=== PATIENT | female | born 2000 | race Caucasian/White ===

== ENCOUNTER 2022-02-27 11:51 | Inpatient (IN) ==
--- NOTE | 2022-02-27 13:30 | History & Physical Report ---
Date of Service February 27, 2022 Assessment & Plan (1) PROM (premature rupture of membranes): (2) 38 weeks gestation of : Plan: admit, iv, labs. start pitocin induction. fhts categ 1. History of Present Illness Chief Complaint: leaking Primary Care Provider: JOSE PCP 21yo at 38 wks who presents to L&D noting leaking clear fluid since 1040 am today. She notes no significant ctx. Some pink dc. +FM PNC uncomplicated PNL rh pos, ri, gbs neg OBH: g1 GYNH: no stds Allergies Allergy/AdvReac Type Severity Reaction Status Date / Time Penicillins Allergy hives Verified 02/25/22 14:24 Home Medications Medication Instructions Recorded Confirmed Type prenat.vits,aj,agn-ykcb-eodir 1 tab PO DAILY 09/02/21 02/25/22 History Saccharomyces boulardii [Digest PO 11/23/21 02/25/22 History Probiotic (S.boulardii)] loratadine 10 mg tablet (Claritin) 10 mg PO DAILY PRN 11/23/21 02/25/22 History Patient History Medical History (Updated 02/27/22 @ 13:35 by Katherin Garcia MD, FACOG) Eczema GERD (gastroesophageal reflux disease) No known health problems Surgical History (Updated 09/02/21 @ 11:02 by Courtney Navarro) History of thumb surgery Family History Other Diabetes Stroke Social History (Updated 02/27/22 @ 12:14 by Lucía Salvador RN) Smoking Status: Never smoker Hx Alcohol Use: No Hx Substance Use: No Preferred Language: Kittitian Communication Ability: Effective Visual Impairment: No Limitations Auto Damage Appraiser Required: No Beliefs That Will Affect Care: None marital status: marital status details: Fantasma (28) [phone] Current Living Situation: Spouse Current Living Situation Comment: lives with spouse current occupational status: employed current occupation: [employer]. Other Information That Helps Us Care for You: No Feels Safe at Home: Yes Safety Concerns: Feels Safe At This Time Assistive Devices: None Review of Systems as per Subjective / HPI Physical Exam Constitutional: WD/WN, vitals as above Respiratory: normal respiratory effort, lungs clear to auscultation Cardiovascular: Rate/Rhythm: regular rate and regular rhythm Gastrointestinal (Abdomen): soft gravid nt efw 7-8# Musculoskeletal: no edema nontender calves Neurologic: grossly normal Psychiatric: A+Ox3, euthymic affect Genitourinary: Manual OB Exam: + cervical dilation 3 cm, + cervical effacement 90%, + station -2 and + amniotic fluid (SSE +pooling, ) clear, nitrazine positive and ferning present OB Exam Monitor Tracing: + external FHT monitor used, + external uterine monitor used (irreg), + category I and + normal FHT variability Results & Data ([facility]) Vital Signs (Past 12 Hours) Vital Signs Temp Pulse Resp BP 02/27/22 12:14 97.9 F 18 02/27/22 12:10 77 129/67 Coding Level of Care Code None Diagnoses PROM (premature rupture of membranes) O42.90 38 weeks gestation of Z3A.38
[2022-02-27] MEDS ORDERED: OXYTOCIN 30 UNITS/500 ML BAG IV PRN ×3 (13:36→23:50)
[2022-02-27 14:08] LABS: Hematocrit (blood only) 36.4 % (37-47); Hemoglobin 12.4 g/dL (12.0-16.0); Mean Corpuscular Hemoglobin 27.9 pg (25-34); Mean Corpuscular Hgb Conc 34.1 g/dL (32-36); Mean Platelet Volume 10.9 fL (7.4-10.4); Platelet Count 295 K/uL (130-400); RDW Coefficient of Variation 14.2 % (11.5-14.5); RDW Standard Deviation 42.7 fL (36.4-46.3); Red Blood Count 4.44 M/uL (4.2-5.4); White Blood Count 10.49 K/uL (4.8-10.8)
[2022-02-27] MEDS ORDERED: BUPIVACAINE 0.25% 30 ML VIAL ONE (14:18)
[2022-02-27] MEDS ORDERED: fentaNYL citrate 100 MCG/2 ML VIAL ONE ×2 (14:18→19:40)
[2022-02-27] MEDS ORDERED: ePHEDrine sulfate 50 MG/ML AMP ONE (14:18)
[2022-02-27] MEDS ORDERED: SODIUM CHLORIDE 0.9% INJ 10 ML VIAL ONE (14:18)
[2022-02-27] MEDS ORDERED: fentaNYL 2MCG/ML ROPIVACAINE 1.25MG/ML 100 ML BAG EPI ONE (14:18)
[2022-02-27] MEDS: LACTATED RINGER'S 1,000 ML IV PRN ×3 (14:20→21:40)
--- NOTE | 2022-02-27 15:00 | Anesthesiology Consultation ---
Date of Service February 27, 2022 Assessment & Plan (1) Encounter for pre-operative examination: Chart Review Chart Review: Acceptable Risk for Labor Epidural Consults Requested none ASA ASA2 Proposed Anesthesia Anesthesia Type: Labor Epidural Risk / Benefits Reviewed With: PT / POA / Parent / Guardian, Accepts Plan and Informed Consent Obtained History Height/Weight Height: 5 ft 4 in Weight: 108.409 kg Allergies Allergy/AdvReac Type Severity Reaction Status Date / Time Penicillins Allergy hives Verified 02/25/22 14:24 Medications Home Medications Medication Instructions Recorded Confirmed Last Taken prenat.vits,aj,gvn-mnfu-hmzag 1 tab PO DAILY 09/02/21 02/25/22 Unknown Saccharomyces boulardii [Digest PO 11/23/21 02/25/22 Unknown Probiotic (S.boulardii)] loratadine 10 mg tablet (Claritin) 10 mg PO DAILY PRN 11/23/21 02/25/22 Unknown Active Medications Generic Name Dose Route Start Last Admin Trade Name Freq PRN Reason Stop Dose Admin Lactated Ringer's 1,000 mls @ 125 mls/hr 02/27/22 13:36 02/27/22 14:20 Lr IV 03/01/22 13:35 999 mls/hr .Q8H PRN Administration L&D Protocol Protocol Past Medical History Medical History Eczema GERD (gastroesophageal reflux disease) No known health problems Exercise / Class Metabolic Activity II 4-5 Yardwork/Stairs/Walk up hill Past Family History Family History Other Diabetes Stroke Past Surgical History Surgical History History of thumb surgery Past Anesthesia History No Hx of Anesthesia Complications and No Family Hx of Anesthesia Complications History of PONV No Hx of PONV and No Hx of Motion Sickness Social History Smoking Status: Never smoker Hx Alcohol Use: No Hx Substance Use: No Physical Exam Vital Signs Last Vital Signs Temp 97.9 F 02/27/22 12:14 Pulse 72 02/27/22 14:53 Resp 18 02/27/22 12:14 BP 129/67 02/27/22 12:10 Pulse Ox 98 02/27/22 14:53 ENMT Mouth: no dentition abnormality Thyromental Distance: > or= 3.5 Finger Breadths Mallampati Class: II Neck normal visual inspection Respiratory normal respiratory effort Auscultation: lungs clear to auscultation bilaterally Cardiovascular Rate/Rhythm: regular rate and regular rhythm Testing Laboratory Results 02/27/22 13:51 Blood Type A Positive 02/27/22 12:56 Antibody Screen NEGATIVE 02/27/22 12:56
[2022-02-27] MEDS ORDERED: ePHEDrine sulfate 50 MG/ML AMP IV PRN (15:22)
[2022-02-27] MEDS ORDERED: fentaNYL 2MCG/ML ROPIVACAINE 1.25MG/ML 100 ML BAG EPI PRN ×2 (15:22→19:56)
[2022-02-27] MEDS ORDERED: NALOXONE HCL 0.4 MG/1 ML VIAL/CARP IV PRN (15:22)
[2022-02-27] MEDS ORDERED: diphenhydrAMINE 50 MG/ML VIAL IV PRN (15:22)
[2022-02-27] MEDS ORDERED: ONDANSETRON INJ 2 MG/ML 2 ML VIAL IV PRN (15:22)
[2022-02-27] MEDS ORDERED: NALOXONE HCL 1 MG in SODIUM CHLORIDE 0.9% 1000ML 1,000 ML IV PRN (15:22)
[2022-02-27] MEDS ORDERED: NALBUPHINE HCL INJ 10 MG/ML AMP IV PRN (15:22)
--- NOTE | 2022-02-27 16:46 | Labor Progress Brief Note ---
Date of Service February 27, 2022 Subjective now comfortable with epidural Assessment & Plan (1) 38 weeks gestation of : (2) PROM (premature rupture of membranes): Plan: good cx change. c/w pit. fhts categ 1. Admission and Anticipated Discharge Date Admission Date: February 27, 2022 Physical Exam Constitutional: WD/WN, vitals as above Genitourinary: Manual OB Exam: + cervical dilation 5 cm, + cervical effacement 100% and + station -1 OB Exam Monitor Tracing: + external FHT monitor used, + external uterine monitor used (q2 pit at 1), + category I and + normal FHT variability Results & Data ([facility]) Vital Signs (Past 12 Hours) Vital Signs Temp Pulse Resp BP Pulse Ox 02/27/22 16:43 76 100 02/27/22 16:38 69 100 02/27/22 16:34 68 129/59 L 02/27/22 16:33 68 100 02/27/22 16:28 68 100 02/27/22 16:24 69 137/82 02/27/22 16:23 72 100 02/27/22 16:18 77 127/76 100 02/27/22 16:13 69 99 02/27/22 16:12 68 20 140/74 02/27/22 16:08 72 137/77 99 02/27/22 16:03 86 100 02/27/22 16:02 70 20 138/69 02/27/22 15:58 69 99 02/27/22 15:57 69 138/72 02/27/22 15:53 73 99 02/27/22 15:52 71 136/72 02/27/22 15:48 71 99 02/27/22 15:47 71 140/72 02/27/22 15:45 74 20 142/73 H 02/27/22 15:43 71 140/71 97 02/27/22 15:41 82 146/75 H 02/27/22 15:39 71 144/74 H 02/27/22 15:38 72 98 02/27/22 15:37 86 147/77 H 02/27/22 15:35 83 20 143/71 H 02/27/22 15:33 71 141/72 H 97 02/27/22 15:31 73 20 139/72 02/27/22 15:28 78 143/74 H 96 02/27/22 15:27 73 20 158/83 H 02/27/22 15:25 81 157/87 H 02/27/22 15:23 73 20 160/93 H 97 02/27/22 15:21 89 20 152/84 H 02/27/22 15:19 65 20 146/79 H 02/27/22 15:18 64 98 02/27/22 15:17 71 20 154/83 H 02/27/22 15:15 91 H 20 158/88 H 02/27/22 15:13 74 99 02/27/22 15:08 74 100 02/27/22 15:05 98.2 F 73 20 156/84 H 02/27/22 15:03 83 99 02/27/22 14:58 85 100 02/27/22 14:53 72 98 02/27/22 14:48 79 100 02/27/22 14:43 83 100 02/27/22 14:38 81 99 02/27/22 14:33 79 99 02/27/22 14:28 77 100 02/27/22 14:23 73 99 02/27/22 14:18 81 100 02/27/22 12:14 97.9 F 18 02/27/22 12:10 77 129/67 Coding Level of Care Code None Diagnoses 38 weeks gestation of Z3A.38 PROM (premature rupture of membranes) O42.90
[2022-02-27] MEDS ORDERED: CALCIUM CARBONATE 500 MG CHEWABLE TAB PO PRN (17:41)
[2022-02-27] MEDS ORDERED: NURSING L&D Epidural Breakthrough Pain Update ONE (18:37)
[2022-02-27] MEDS ORDERED: LIDOCAINE 2% 20 MG/ML 5 ML SYR IV ONE (19:40)
[2022-02-27] MEDS ORDERED: LIDOCAINE 2%/EPINEPHRINE 1:200,000 20 ML SDV ONE (19:40)
--- NOTE | 2022-02-27 20:30 | Communication Note ---
Date of Service: February 27, 2022 pt complaining of breakthrough labor pain. pt states the pain is sharp in her vaginal area. pt is lying flat in the bed. i placed the patient at 30 degrees and bolused 5mL of 2% lido with epi plus 100 mcg fentanyl. pt reported improvement in symptoms.
--- NOTE | 2022-02-27 23:47 | Delivery Summary ---
Vaginal Delivery Summary Date of Service February 27, 2022 Vaginal Delivery Summary The patient dilated to complete and pushed to deliver a viable male infant Apgars 8 and 9 via over intact perineum. Mouth and nose bulb suctioned at perineum. Shoulders and body delivered with ease. was vigorous and crying at . Cord clamped at 30 seconds of life and infant to maternal abdomen where the cord was then doubly clamped and cut. Placenta delivered spontaneously and intact, three-vessel cord. Hemostasis not achieved with dilute pitocin and uterine massage and drainage of the bladder for approximately 100 cc under sterile conditions. Uterus swept x 2 with no evidence of retained products, only clots and no uterine tone. Cerix and sulci intact. 800mcg rectal cytotec followed by IM hemabate given after bp noted. Additionaly evaluation of cavity without sufficient tone and therefore Bakri balloon placed with 510cc NS. Machado placed under sterile conditions. FF at u toward right. Bleeding lessened. Cervix and sulci intact. EBL 800 cc. Mother and baby stable re covery. [facility] Vaginal Delivery Charge Delivery Type Details:
[2022-02-27] MEDS ORDERED: BUTORPHANOL TARTRATE 1 MG/ML VIAL IV STA (23:48)
[2022-02-27] MEDS ORDERED: BUTORPHANOL TARTRATE 1 MG/ML VIAL ONE (23:49)
[2022-02-27] MEDS ORDERED: miSOPROStoL 200 MCG TAB PR ONE (23:50)
[2022-02-27] MEDS ORDERED: DIPHTHERIA/TETANUS/PERTUSSIS 0.5 ML SYR/VIAL IM ONE (23:50)
[2022-02-27] MEDS ORDERED: CARBOPROST TROMETHAMINE 250 MCG/ML AMPUL ONE (23:50)
[2022-02-27] MEDS ORDERED: CARBOPROST TROMETHAMINE 250 MCG/ML AMPUL IM ONE (23:50)
[2022-02-27] MEDS ORDERED: BENZOCAINE 20% AER SPR 82.5 GM CAN EXT PRN (23:50)
[2022-02-27] MEDS ORDERED: HYDROCORTISONE ACETATE 25 MG SUPP PR PRN (23:50)
[2022-02-27] MEDS ORDERED: ACETAMINOPHEN 325 MG TAB PO PRN (23:50)
[2022-02-27] MEDS ORDERED: miSOPROStoL 200 MCG TAB ONE (23:50)
[2022-02-27] MEDS ORDERED: bisacodyL 10 MG SUPP PR PRN (23:50)
[2022-02-28] MEDS ORDERED: OXYTOCIN 20 UNITS in LACTATED RINGER'S 1,000 ML IV SCH (00:01)
[2022-02-28] MEDS ORDERED: LORATADINE 10 MG TAB PO PRN (00:01)
[2022-02-28] MEDS: ceFAZolin 2000MG 2,000 MG/15 ML SYR IV SCH ×3 (00:16→18:54)
[2022-02-28] MEDS: IBUPROFEN 600 MG TAB PO PRN ×3 (01:05→11:39)
[2022-02-28] MEDS: oxyCODONE/ACETAMINOPHEN 5mg/325mg TAB PO PRN ×2 (01:05→05:25)
--- NOTE | 2022-02-28 01:13 | Anesthesiology Progress Note ---
Date of Service February 28, 2022 Anesthesia Post Procedure Vital Signs Vital Signs: Temp Pulse Resp BP Pulse Ox 02/28/22 01:08 76 98 02/28/22 01:03 100 H 98 02/28/22 00:59 80 151/80 H 02/28/22 00:58 82 98 02/28/22 00:53 102 H 98 02/28/22 00:48 83 97 02/28/22 00:44 85 154/76 H 02/28/22 00:43 99 H 98 02/28/22 00:38 94 H 96 02/28/22 00:33 92 H 97 02/28/22 00:29 95 H 158/72 H 02/28/22 00:28 97 H 97 02/28/22 00:23 98 H 97 02/28/22 00:18 97 H 95 02/28/22 00:14 96 H 158/70 H 02/28/22 00:13 104 H 94 02/28/22 00:08 99 H 95 02/28/22 00:05 98 H 94 02/28/22 00:03 103 H 94 02/28/22 00:01 103 H 161/70 H 02/28/22 00:00 100 H 94 02/27/22 23:59 105 H 170/70 H 02/27/22 23:58 108 H 96 02/27/22 23:53 149 H 97 02/27/22 23:48 101 H 98 02/27/22 23:43 106 H 165/88 H 100 02/27/22 23:40 107 H 159/81 H 02/27/22 23:38 103 H 99 02/27/22 23:37 109 H 158/84 H 02/27/22 23:34 110 H 155/80 H 02/27/22 23:33 115 H 96 02/27/22 23:29 118 H 151/97 H 02/27/22 23:28 123 H 96 02/27/22 23:23 127 H 97 02/27/22 23:21 152 H 94 02/27/22 23:18 128 H 94 02/27/22 23:13 124 H 96 02/27/22 23:08 120 H 96 02/27/22 23:03 124 H 97 02/27/22 22:58 134 H 97 02/27/22 22:53 137 H 97 02/27/22 22:48 133 H 98 02/27/22 22:43 146 H 98 02/27/22 22:38 124 H 95 02/27/22 22:33 116 H 97 02/27/22 22:28 140 H 98 02/27/22 22:27 120 H 132/66 02/27/22 22:26 131 H 91 02/27/22 22:23 102 H 99 02/27/22 22:18 110 H 98 02/27/22 22:16 101 H 91 02/27/22 22:13 119 H 98 02/27/22 22:10 99 H 92 02/27/22 22:08 82 100 02/27/22 22:03 78 98 06 21:58 74 100 02/27/22 21:53 83 99 02/27/22 21:51 94 H 93 02/27/22 21:48 72 99 02/27/22 21:43 91 H 100 02/27/22 21:38 79 99 02/27/22 21:33 79 100 02/27/22 21:28 72 100 02/27/22 21:26 80 128/69 91 02/27/22 21:23 73 100 02/27/22 21:18 73 100 02/27/22 21:13 95 H 100 02/27/22 21:11 81 135/61 02/27/22 21:08 81 99 02/27/22 21:07 36.5 C 18 02/27/22 21:03 100 H 99 02/27/22 20:58 89 98 02/27/22 20:53 96 H 98 02/27/22 20:48 97 H 98 02/27/22 20:43 105 H 99 02/27/22 20:40 90 124/81 02/27/22 20:38 88 98 05 20:33 89 98 02/27/22 20:28 86 98 0605 20:25 71 130/62 06 20:23 74 99 02/27/22 20:18 72 99 02/27/22 20:13 85 98 05 20:08 106 H 140/68 97 02/27/22 20:03 94 H 143/66 H 96 02/27/22 19:58 91 H 142/73 H 97 02/27/22 19:53 74 96 02/27/22 19:52 67 142/72 H 02/27/22 19:48 75 145/63 H 96 02/27/22 19:46 67 147/70 H 02/27/22 19:43 74 96 02/27/22 19:38 78 97 02/27/22 19:33 82 98 02/27/22 19:31 74 148/76 H 02/27/22 19:28 76 98 02/27/22 19:23 80 97 02/27/22 19:18 77 144/82 H 98 02/27/22 19:13 77 97 02/27/22 19:08 36.7 C 73 20 97 02/27/22 19:03 87 98 02/27/22 19:01 77 133/63 02/27/22 18:58 82 99 02/27/22 18:53 69 96 02/27/22 18:48 73 98 02/27/22 18:47 71 132/61 02/27/22 18:43 75 97 02/27/22 18:38 78 98 02/27/22 18:33 82 98 02/27/22 18:31 81 20 134/59 L 02/27/22 18:28 68 97 02/27/22 18:23 77 98 02/27/22 18:18 77 99 02/27/22 18:17 67 133/65 02/27/22 18:13 84 98 02/27/22 18:08 77 99 02/27/22 18:03 75 100 02/27/22 18:01 70 142/74 H 02/27/22 18:00 20 02/27/22 17:58 74 99 05 17:53 64 100 05 17:48 71 100 05 17:45 66 18 134/65 05 17:43 64 100 05 17:38 57 L 100 02/27/22 17:33 70 99 05 17:31 68 139/67 05 17:28 73 100 02/27/22 17:23 90 100 05 17:18 73 100 05 17:15 74 145/69 H 02/27/22 17:13 75 100 02/27/22 17:08 83 100 02/27/22 17:03 74 100 06/05 17:01 74 138/71 0605 16:58 69 100 0605 16:53 70 100 060522 16:48 69 100 0622 16:47 36.8 C 18 02/27/22 16:46 61 18 135/62 0605 16:43 76 100 02/27/22 16:38 69 100 0605 16:34 68 18 129/59 L 02/27/22 16:33 68 100 060522 16:28 68 100 06 16:24 69 137/82 0605 16:23 72 100 06 16:18 77 127/76 100 0605 16:13 69 99 0605 16:12 68 20 140/74 02/27/22 16:08 72 137/77 99 0605 16:03 86 100 02/27/22 16:02 70 20 138/69 0605 15:58 69 99 0605 15:57 69 138/72 0605 15:53 73 99 0605 15:52 71 136/72 06/05 15:48 71 99 060522 15:47 71 140/72 0605 15:45 74 20 142/73 H 05 15:43 71 140/71 97 05 15:41 82 146/75 H 05 15:39 71 144/74 H 0605 15:38 72 98 0605 15:37 86 147/77 H 05 15:35 83 20 143/71 H 0605/22 15:33 71 141/72 H 97 05/22 15:31 73 20 139/72 06/05/22 15:28 78 143/74 H 96 05 15:27 73 20 158/83 H 0605/22 15:25 81 157/87 H 02/27/22 15:23 73 20 160/93 H 97 05/22 15:21 89 20 152/84 H 0605/22 15:19 65 20 146/79 H 0605 15:18 64 98 06/05/22 15:17 71 20 154/83 H 02/27/22 15:15 91 H 20 158/88 H 02/27/22 15:13 74 99 02/27/22 15:08 74 100 02/27/22 15:05 36.8 C 73 20 156/84 H 02/27/22 15:03 83 99 02/27/22 14:58 85 100 02/27/22 14:53 72 98 02/27/22 14:48 79 100 02/27/22 14:43 83 100 02/27/22 14:38 81 99 02/27/22 14:33 79 99 02/27/22 14:28 77 100 02/27/22 14:23 73 99 02/27/22 14:18 81 100 02/27/22 12:14 36.6 C 18 02/27/22 12:10 77 129/67 Pain Intensity Bilateral Abdomen: Pain Intensity: 10 Transfer of Care Handoff Completed per policy Notes Mental Status: alert / awake / arousable and participated in evaluation Patient Amnestic to Procedure: Yes Nausea / Vomiting: adequately controlled Pain: adequately controlled Airway Patency, RR, SpO2: stable & adequate BP & HR: stable & adequate Hydration State: stable & adequate Anesthetic Complications: no major complications apparent and Pt Satisfied with anesthetic care
[2022-02-28 06:31] LABS: Hematocrit (blood only) 30.8 % (37-47); Hemoglobin 10.6 g/dL (12.0-16.0)
--- NOTE | 2022-02-28 07:35 | Obstetrical Progress Note ---
Date of Service February 28, 2022 Assessment & Plan (1) Encounter for care and examination after delivery: Plan: 21yo PPD 1 s/p at 38 weeks complicated with PPH. Bakri place on pit. +jacinto. -Continue routine care -Vitals reviewed- afebrile, mildly elevated BP and HR s/p PPH but improving. -GBS neg -Generally patient progressing well. Will plan for Bakri/jacinto removal later today. -Advance diet as tolerated -Encourage ambulation -Pain control with ibuprofen, acetaminophen PRN -Encourage -Hgb 12.4 --> 10.6, continue to monitor -f/u in 6 weeks with OB after discharge (2) hemorrhage: Admission and Anticipated Discharge Date Admission Date: February 27, 2022 Supervising Physician Co-Signing Physician Notes Resident Physician Supervision Note: I was present with Dr. Hartmann during the history and exam. I discussed the case with the resident and agree with the findings and plan as documented in the note. Any exceptions or clarifications are listed here: pt doing well this am. less pain. feels "pretty good." bleeding overnight noted, good urine output, hgb noted this am. 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 , jacinto in place. ff 1 down nt, nt calves. routine care otherwise, has scds in place since in bed. Documented By: Katherin Garcia MD, FACOG Subjective Ambulation: no Voiding: no, jacinto in place Passing Gas: yes BM: no Diet Tolerance: has only had fluids Lochia: small Feeding Type: Current Pain Level(1-10): 2 Review of Systems Review of Systems: Denies fevers/chills. Denies dyspnea. +mild cough Denies chest pain. +heartburn Denies dysuria. Denies headache. Denies back pain. Physical Exam Physical Exam: General: Alert, oriented, no acute distress Cardiac: Regular rate and rhythm, normal S1, S2. No murmurs appreciated. Respiratory: Clear to auscultation b/l with good air flow entry, symmetric chest rise and fall. No wheezes or crackles. No increased work of breathing or accesso ry muscle use Abdomen: Soft, mild diffuse tenderness, nondistended. Fundus firm and palpable at 1 cm below umbilicus. No guarding or rebound. Skin: No rashes or lesions Extremities: Warm, dry, well-perfused with capillary refill <2s b/l. No lower extremity edema, erythema or swelling. Negative Ric's sign b/l. : jacinto and bakri in place both with good output Results & Data ([facility]) Vital Signs (Past 12 Hours) Vital Signs Temp Pulse Resp BP Pulse Ox 02/28/22 07:17 93 H 141/65 H 02/28/22 06:47 100 H 139/74 02/28/22 06:27 93 H 18 148/70 H 02/28/22 05:46 93 H 111/77 02/28/22 05:17 85 136/65 02/28/22 05:16 16 02/28/22 04:47 88 144/66 H 02/28/22 04:17 100 H 110/81 02/28/22 03:16 36.5 C 93 H 18 140/70 02/28/22 02:47 90 148/77 H 02/28/22 02:16 71 16 129/70 02/28/22 01:46 36.5 C 79 157/74 H 02/28/22 01:43 18 02/28/22 01:38 76 99 02/28/22 01:33 83 100 02/28/22 01:29 82 155/79 H 02/28/22 01:28 82 100 02/28/22 01:23 90 98 02/28/22 01:18 77 98 02/28/22 01:14 90 157/83 H 02/28/22 01:13 80 18 100 02/28/22 01:08 76 98 02/28/22 01:03 100 H 98 02/28/22 00:59 80 151/80 H 02/28/22 00:58 82 98 02/28/22 00:53 102 H 98 02/28/22 00:48 83 97 02/28/22 00:44 85 18 154/76 H 02/28/22 00:43 99 H 98 02/28/22 00:38 94 H 96 02/28/22 00:33 92 H 97 02/28/22 00:29 95 H 20 158/72 H 02/28/22 00:28 97 H 97 02/28/22 00:23 98 H 97 02/28/22 00:18 97 H 95 02/28/22 00:14 96 H 158/70 H 02/28/22 00:13 104 H 20 94 02/28/22 00:08 99 H 95 02/28/22 00:05 98 H 94 02/28/22 00:03 103 H 94 02/28/22 00:01 103 H 161/70 H 02/28/22 00:00 100 H 94 02/27/22 23:59 105 H 170/70 H 02/27/22 23:58 108 H 18 96 02/27/22 23:53 149 H 97 02/27/22 23:48 101 H 98 02/27/22 23:43 106 H 18 165/88 H 100 02/27/22 23:40 107 H 159/81 H 02/27/22 23:38 103 H 99 02/27/22 23:37 109 H 158/84 H 02/27/22 23:34 110 H 155/80 H 02/27/22 23:33 115 H 96 02/27/22 23:29 118 H 151/97 H 02/27/22 23:28 123 H 96 02/27/22 23:23 127 H 97 02/27/22 23:21 152 H 94 02/27/22 23:18 128 H 94 02/27/22 23:13 124 H 96 02/27/22 23:08 120 H 96 02/27/22 23:03 124 H 97 02/27/22 22:58 134 H 97 02/27/22 22:53 137 H 97 02/27/22 22:48 133 H 98 02/27/22 22:43 146 H 98 02/27/22 22:38 124 H 95 02/27/22 22:33 116 H 97 02/27/22 22:28 140 H 98 02/27/22 22:27 120 H 132/66 02/27/22 22:26 131 H 91 02/27/22 22:23 102 H 99 02/27/22 22:18 110 H 98 02/27/22 22:16 101 H 91 02/27/22 22:13 119 H 98 02/27/22 22:10 99 H 92 02/27/22 22:08 82 100 02/27/22 22:03 78 98 02/27/22 21:58 74 100 02/27/22 21:53 83 99 02/27/22 21:51 94 H 93 02/27/22 21:48 72 99 02/27/22 21:43 91 H 100 02/27/22 21:38 79 99 02/27/22 21:33 79 100 02/27/22 21:28 72 100 02/27/22 21:26 80 128/69 91 02/27/22 21:23 73 100 02/27/22 21:18 73 100 02/27/22 21:13 95 H 100 02/27/22 21:11 81 135/61 02/27/22 21:08 81 99 02/27/22 21:07 36.5 C 18 02/27/22 21:03 100 H 99 02/27/22 20:58 89 98 02/27/22 20:53 96 H 98 02/27/22 20:48 97 H 98 02/27/22 20:43 105 H 99 02/27/22 20:40 90 124/81 02/27/22 20:38 88 98 02/27/22 20:33 89 98 02/27/22 20:28 86 98 02/27/22 20:25 71 130/62 02/27/22 20:23 74 99 02/27/22 20:18 72 99 02/27/22 20:13 85 98 02/27/22 20:08 106 H 140/68 97 02/27/22 20:03 94 H 143/66 H 96 02/27/22 19:58 91 H 142/73 H 97 02/27/22 19:53 74 96 02/27/22 19:52 67 142/72 H 02/27/22 19:48 75 145/63 H 96 02/27/22 19:46 67 147/70 H 02/27/22 19:43 74 96 02/27/22 19:38 78 97 02/27/22 19:33 82 98 02/27/22 19:31 74 148/76 H Resident Activity Tracking Resident Involvement: Resident Care Provided Care Provided: OB Delivery
[2022-02-28] MEDS: PRENATAL VITAMIN 1 TAB PO SCH (08:01)
[2022-02-28] MEDS: DOCUSATE SODIUM 100 MG CAP PO SCH ×2 (08:01→20:33)
[2022-02-28] MEDS: FAMOTIDINE 20 MG TAB PO SCH (08:02)
[2022-02-28] MEDS ORDERED: CALCIUM CARBONATE 500 MG CHEWABLE TAB PO PRN (17:39)
--- NOTE | 2022-03-01 08:30 | Obstetrical Progress Note ---
Date of Service March 01, 2022 Assessment & Plan (1) Encounter for care and examination after delivery: Plan: 21yo PPD 2 s/p at 38 weeks complicated with PPH. Jacinto/Bakri removed yesterday (02/28). -Continue routine care -Vitals reviewed- afebrile, HDS -GBS neg -Regular diet, voiding -Encourage ambulation -Pain control with ibuprofen, acetaminophen PRN -Encourage -Hgb 12.4 --> 10.6 --> pending (03/01), continue to monitor -ok for discharge if H&H stable -f/u in 6 weeks with OB after discharge (2) hemorrhage: Admission and Anticipated Discharge Date Admission Date: February 27, 2022 Supervising Physician Co-Signing Physician Notes Patient seen and evaluated with resident and agree with the above findings and plan. Doing well. Stable for discharge pending H/H Subjective Ambulation: yes Voiding: yes, jacinto removed (02/28) Passing Gas: yes BM: no Diet Tolerance: regular, denies N/V Lochia: small Feeding Type: Current Pain Level(1-10): 0 Review of Systems Review of Systems: Denies fevers/chills. Denies dyspnea or cough. Denies chest pain. +heartburn, improving Denies dysuria. Denies headache. Denies back pain. Physical Exam Physical Exam: General: Alert, oriented, no acute distress Cardiac: Regular rate and rhythm, normal S1, S2. No murmurs appreciated. Respiratory: Clear to auscultation b/l with good air flow entry, symmetric chest rise and fall. No wheezes or crackles. No increased work of breathing or accessory muscle use Abdomen: Soft, mild diffuse tenderness (improving), nondistended. Fundus firm and palpable at 2 cm below umbilicus. No guarding or rebound. Skin: No rashes or lesions Extremities: Warm, dry, well-perfused with capillary refill <2s b/l. No lower extremity edema, erythema or swelling. Negative Ric's sign b/l. Results & Data ([facility]) Vital Signs (Past 12 Hours) Vital Signs Temp Pulse Pulse Resp BP Pulse Ox 03/01/22 04:43 36.8 C 93 H 16 115/63 98 02/28/22 23:10 37.2 C 94 H 18 139/79 98 06/06/22 22:57 83 98 02/28/22 22:52 79 98 02/28/22 22:47 88 98 02/28/22 22:42 88 98 02/28/22 22:37 84 99 02/28/22 22:32 86 99 02/28/22 22:30 89 88 L 02/28/22 22:27 95 H 98 02/28/22 22:22 83 98 02/28/22 22:19 94 H 88 L 02/28/22 22:17 93 H 98 02/28/22 22:12 84 98 02/28/22 22:07 89 99 02/28/22 22:02 87 98 02/28/22 21:57 89 98 02/28/22 21:52 94 H 99 02/28/22 21:47 99 H 100 02/28/22 21:42 97 H 99 02/28/22 21:37 99 H 99 02/28/22 21:32 96 H 99 02/28/22 21:27 87 98 02/28/22 21:22 102 H 98 02/28/22 21:17 97 H 99 02/28/22 21:12 95 H 98 02/28/22 21:07 102 H 98 02/28/22 21:02 99 H 98 02/28/22 20:57 102 H 98 02/28/22 20:52 101 H 99 02/28/22 20:47 97 H 98 02/28/22 20:42 100 H 98 02/28/22 20:37 103 H 98 02/28/22 20:32 112 H 97 02/28/22 20:27 111 H 98 Resident Activity Tracking Resident Involvement: Resident Care Provided Care Provided: OB Delivery
[2022-03-01 09:05] LABS: Hematocrit (blood only) 29.1 % (37-47); Hemoglobin 9.8 g/dL (12.0-16.0)
[2022-03-01] MEDS: DOCUSATE SODIUM 100 MG CAP PO SCH ×2 (09:29→21:21)
[2022-03-01] MEDS: PRENATAL VITAMIN 1 TAB PO SCH (09:29)
[2022-03-01] MEDS: FAMOTIDINE 20 MG TAB PO SCH (19:37)
--- NOTE | 2022-03-02 06:39 | Obstetrical Progress Note ---
Date of Service March 02, 2022 Assessment & Plan (1) Encounter for care and examination after delivery: Plan: 21yo PPD 3 s/p at 38 weeks complicated with PPH. Jacinto/Bakri removed (02/28). -Continue routine care -Vitals reviewed- afebrile, HDS -GBS neg -Regular diet, voiding -Encourage ambulation -Pain control with ibuprofen, acetaminophen PRN -Encourage -Hgb 9.8 (6/7) -f/u in 6 weeks with OB after discharge (2) hemorrhage: Admission and Anticipated Discharge Date Admission Date: February 27, 2022 Supervising Physician Co-Signing Physician Notes Resident Physician Supervision Note: I interviewed and examined the patient. Discussed with Dr. Hartmann and agree with findings and plan as documented in the note. Any exceptions or clarifications are listed here: PP3 s/p , stayed last evening as was not 24 hrs from bakri and was still level 2. Continues to do well s/p bakri, bleeding appropriate. VSS, exam benign and wnl. H/H stable yesterday. Stable or d/c home today Documented By: Tessa Gonzalez MD Subjective Ambulation: yes Voiding: yes, jacinto removed (02/28) Passing Gas: yes BM: no Diet Tolerance: regular, denies N/V Lochia: small Feeding Type: Current Pain Level(1-10): 0 Review of Systems Review of Systems: Denies fevers/chills. Denies dyspnea or cough. Denies chest pain. +mild heartburn after eating (improving) Denies dysuria. Denies headache. Denies back pain. Physical Exam Physical Exam: General: Alert, oriented, no acute distress Cardiac: Regular rate and rhythm, normal S1, S2. No murmurs appreciated. Respiratory: Clear to auscultation b/l with good air flow entry, symmetric chest rise and fall. No wheezes or crackles. No increased work of breathing or accessory muscle use Abdomen: Soft, nontender, nondistended. Fundus firm and palpable at 2 cm below umbilicus. No guarding or rebound. Skin: No rashes or lesions Extremities: Warm, dry, well-perfused with capillary refill <2s b/l. No lower extremity edema, erythema or swelling. Negative Ric's sign b/l. Results & Data ([facility]) Vital Signs (Past 12 Hours) Vital Signs Temp Pulse Resp BP Pulse Ox 03/01/22 23:40 36.6 C 85 18 115/79 99 03/01/22 19:35 36.8 C 89 18 134/85 99 Resident Activity Tracking Resident Involvement: Resident Care Provided Care Provided: OB Delivery
[2022-03-02] MEDS: PRENATAL VITAMIN 1 TAB PO SCH (08:00)
[2022-03-02] MEDS: DOCUSATE SODIUM 100 MG CAP PO SCH (08:00)
[2022-03-02] MEDS: FAMOTIDINE 20 MG TAB PO SCH (08:30)
== END 2022-03-02 21:43 | disposition home or self-care (01) | DRG 768 ==
LOC: OPB 11:51 → 4S1 11:52 → 4E2 02-28 23:26